=== PATIENT | female | born 1990 | race Caucasian/White ===

== ENCOUNTER 2016-09-24 16:33 | Observation (INO) | payer MEDICAID ==
[~2016-09-24 16:33] MED LIST: AUGMENTIN 875-1 EAC2 PO; BENADRYL25 MG PO; BIRTH CONTROL; DIFLUCAN150 MG PO; DOXYCYCLINE HY100 M5 PO; KEFLEX500 M4 PO; NO MEDICATIONS; NO MEDS; NORCO 5-325 TA1 EACH PO; PREDNISONE20 MG PO; PRENATAL-U CAPS1 CAP PO; TRI-SPRINTEC1 TAB PO
[2016-09-24] MEDS ORDERED: LEXAPRO10 M2 PO (16:58)
[2016-09-24 18:00] LABS: URINE APPEARANCE CLEAR; URINE BILIRUBIN NEGATIVE (NEG); URINE COLOR YELLOW; URINE GLUCOSE (UA) NEGATIVE (NEG); URINE KETONE NEGATIVE (NEG); URINE PROTEIN NEGATIVE (NEG)
[2016-09-24 18:01] LABS: URINE BLOOD TRACE (NEG); URINE NITRITE NEGATIVE (NEG); URINE SPECIFIC GRAVITY 1.011 (1.003-1.030)
[2016-09-24 18:06] LABS: URINE BACTERIA 1+
[2016-09-24 18:08] LABS: URINE LEUKOCYTE ESTERASE POSITIVE (NEG)
== END 2016-09-24 19:22 ==
LOC: LDR 16:33
PROVIDERS: Family Medicine; ADMIT Obstetrics & Gynecology
DX: O99.89 Other specified diseases and conditions complicating pregnancy, childbirth and the puerperium (principal); R10.9 Unspecified abdominal pain; O42.913 Preterm premature rupture of membranes, unspecified as to length of time between rupture and onset of labor, third trimester; Z3A.35 35 weeks gestation of pregnancy; Z79.899 Other long term (current) drug therapy

== ENCOUNTER 2016-10-08 22:12 | Observation (INO) | payer MEDICAID ==
[~2016-10-08 22:12] MED LIST changes: +LEXAPRO10 M2 PO
[2016-10-08 23:32] LABS: URINE APPEARANCE CLEAR; URINE BILIRUBIN NEGATIVE (NEG); URINE BLOOD NEGATIVE (NEG); URINE COLOR YELLOW; URINE GLUCOSE (UA) NEGATIVE (NEG); URINE KETONE NEGATIVE (NEG); URINE LEUKOCYTE ESTERASE NEGATIVE (NEG); URINE NITRITE NEGATIVE (NEG); URINE PROTEIN NEGATIVE (NEG)
[2016-10-08 23:42] LABS: URINE BACTERIA 2+; URINE RBC 0 /[HPF] (0-5)
== END 2016-10-09 01:30 ==
LOC: LDR 22:12
PROVIDERS: Obstetrics & Gynecology; ADMIT Obstetrics & Gynecology
DX: O99.89 Other specified diseases and conditions complicating pregnancy, childbirth and the puerperium (principal); R10.9 Unspecified abdominal pain; Z3A.38 38 weeks gestation of pregnancy; Z79.899 Other long term (current) drug therapy; Z88.8 Allergy status to other drugs, medicaments and biological substances; Z87.440 Personal history of urinary (tract) infections; Z91.5 Personal history of self-harm; Z90.81 Acquired absence of spleen

== ENCOUNTER 2016-10-11 00:16 | Inpatient (IN) | payer BC, MEDICAID ==
[2016-10-11 01:37] LABS: BASO % 0.3 % (0-2); EOS % 5.7 % (0-7); EOSINOPHIL ABSOLUTE COUNT 0.9 tho/cmm (0.0-0.7); HCT-HEMATOCRIT 37.6 % (34.0-49.0); HGB-HEMOGLOBIN 13.5 gm/dl (12.0-15.5); IMMATURE GRANULOCYTES ABSOLUTE 0.14 tho/cmm (0-0.03); IMMATURE GRANULOCYTES PERCENT 0.9 % (0-0.3); LYMPH % 27.2 % (20-45); LYMPH ABSOLUTE COUNT 4.2 tho/cmm (0.8-4.5); MCH (MEAN CORPUSCULAR HGB) 33.4 pg (28.0-32.0); MCHC MEAN CORPUSCULAR HGB CONC 35.9 % (32.0-36.0); MCV (MEAN CELL VOLUME) 93.1 fl (82.0-96.0); MEAN PLATELET VOLUME 10.9 cmc (9.4-12.4); MONO % 10.5 % (0-12); MONOCYTE ABSOLUTE COUNT 1.6 tho/cmm (0.0-1.2); NEUTROPHIL ABSOLUTE COUNT 8.6 tho/cmm (1.6-8.0); NEUTROPHIL-AUTOMATED 8.6 tho/cmm (1.6-8.0); NEUTROPHILS % 55.4 % (40-80); PLATELET COUNT 389 tho/cmm (150-450); RED BLOOD COUNT 4.04 mil/cmm (4.00-5.20); WHITE BLOOD COUNT 15.4 tho/cmm (4.0-10.0)
[2016-10-12 06:26] LABS: BASO % 0.4 % (0-2); BASO ABSOLUTE COUNT 0.1 tho/cmm (0.0-0.2); EOS % 5.4 % (0-7); HCT-HEMATOCRIT 34.7 % (34.0-49.0); IMMATURE GRANULOCYTES ABSOLUTE 0.18 tho/cmm (0-0.03); LYMPH % 31.5 % (20-45); LYMPH ABSOLUTE COUNT 5.8 tho/cmm (0.8-4.5); MCH (MEAN CORPUSCULAR HGB) 32.4 pg (28.0-32.0); MCHC MEAN CORPUSCULAR HGB CONC 34.6 % (32.0-36.0); MCV (MEAN CELL VOLUME) 93.8 fl (82.0-96.0); MEAN PLATELET VOLUME 10.8 cmc (9.4-12.4); MONO % 8.4 % (0-12); MONOCYTE ABSOLUTE COUNT 1.5 tho/cmm (0.0-1.2); NEUTROPHIL ABSOLUTE COUNT 9.7 tho/cmm (1.6-8.0); NEUTROPHIL-AUTOMATED 9.7 tho/cmm (1.6-8.0); NEUTROPHILS % 53.3 % (40-80); PLATELET COUNT 352 tho/cmm (150-450); RED CELL DISTRIBUTION WIDTH 13.1 % (12.4-16.4); WHITE BLOOD COUNT 18.3 tho/cmm (4.0-10.0)
[2016-10-13] MEDS ORDERED: IBUPROFEN800 M1 PO (09:39)
[2016-10-14] MEDS ORDERED: DIFLUCAN100 M1 PO (05:28)
== END 2016-10-13 10:30 | DRG 775 ==
LOC: LDR 00:16 → OBGD 10:15
PROVIDERS: ADMIT Obstetrics & Gynecology
PROC: 10E0XZZ Delivery of Products of Conception, External Approach (ICD-10-PCS; principal; 2016-10-11)
PROC: 0KQM0ZZ Repair Perineum Muscle, Open Approach (ICD-10-PCS; 2016-10-11)
PROC: 0W8NXZZ Division of Female Perineum, External Approach (ICD-10-PCS; 2016-10-11)
DX: O70.1 Second degree perineal laceration during delivery (principal); Z37.0 Single live birth; F17.210 Nicotine dependence, cigarettes, uncomplicated; Z3A.38 38 weeks gestation of pregnancy; Z88.3 Allergy status to other anti-infective agents; O99.334 Smoking (tobacco) complicating childbirth
CPT/HCPCS: J2370; J2590; J3105

== ENCOUNTER 2016-10-14 04:36 | Emergency (ER) | payer BC, MEDICAID ==
[~2016-10-14 04:36] MED LIST changes: +IBUPROFEN800 M1 PO
[2016-10-14] MEDS ORDERED: DIFLUCAN100 M1 PO (05:28)
== END 2016-10-14 06:50 ==
LOC: EDMED 04:36
DX: B37.9 Candidiasis, unspecified (principal); Z90.81 Acquired absence of spleen; Z87.891 Personal history of nicotine dependence